=== PATIENT | male | born 1950 | race Caucasian/White ===

== ENCOUNTER 2021-06-29 09:49 | Outpatient (CLI) | payer MEDICARE | END 2021-06-29 09:50 | disposition home or self-care (01) | LOC: CSHCT 09:49 | PROVIDERS: ATTEND Otolaryngology Otolaryngic Allergy | DX: C18.6 Malignant neoplasm of descending colon (principal); C78.01 Secondary malignant neoplasm of right lung; C78.7 Secondary malignant neoplasm of liver and intrahepatic bile duct; J38.00 Paralysis of vocal cords and larynx, unspecified; R91.8 Other nonspecific abnormal finding of lung field; R59.0 Localized enlarged lymph nodes | CPT/HCPCS: 70491; 71260; 74177 ==

== ENCOUNTER 2021-07-14 16:12 | Outpatient (CLI) | payer MEDICARE ==
[2021-07-14 18:00] LABS: Hemoglobin 10.6 g/dL (13.5-17.5); Mean Corpuscular HGB CONC 33.4 g/dL (32.0-36.0); Mean Corpuscular Volume 95.8 fl (81.2-95.1); Platelet Count 200 10x3/uL (150-450); RBC Distribution Width 13.9 % (11.5-14.5); Red Blood Cell (RBC) Count 3.31 10x6/uL (4.32-5.72); White Blood Cell (WBC) Count 7.6 10x3/uL (3.5-10.5)
[2021-07-14 18:14] LABS: Anion Gap 16 mmol/L (10-20); BUN (Urea Nitrogen) 25 mg/dL (8.4-25.7); Calc. Creatinine Clearance 0 mL/min (70-130); Calcium 9.2 mg/dL (7.8-10.44); Carbon Dioxide 24 mmol/L (23-31); Chloride 99 mmol/L (98-107); Glucose 259 mg/dL (83-110); Potassium 4.8 mmol/L (3.5-5.1); Sodium 134 mmol/L (136-145)
[2021-07-15 16:27] LABS: SARS-CoV-2 PCR by NAA Not Detected (NotDetected)
== END 2021-07-14 16:13 | disposition home or self-care (01) ==
LOC: CSHLAB 16:12
PROVIDERS: ATTEND Otolaryngology Otolaryngic Allergy
DX: Z01.818 Encounter for other preprocedural examination (principal); Z20.822 Contact with and (suspected) exposure to COVID-19; J38.00 Paralysis of vocal cords and larynx, unspecified; R49.0 Dysphonia
CPT/HCPCS: 80048; 85027; 93005; 93010; U0003; U0005

== ENCOUNTER 2022-01-05 19:13 | Inpatient (IN) | payer MEDICARE ==
[2022-01-05 19:19] VITALS: BMI 22.8
[2022-01-05] MEDS ORDERED: Acetaminophen 325 MG TAB PO PRN (20:51)
[2022-01-05] MEDS ORDERED: Senokot S 8.6-50 MG TAB PO PRN (20:51)
[2022-01-05] MEDS ORDERED: HumuLIN 70/30 (300 UNITS/3 ML VIAL) SC SCH (21:15)
[2022-01-05] MEDS ORDERED: Vancomycin HCl 750 MG in Sodium Chloride 0.9% 250 ML 250 ML IVPB SCH (21:30)
[2022-01-05] MEDS: HYDROcodone/Acetaminophen 7.5/325 mg Tablet PO PRN (21:39)
[2022-01-05] MEDS: Gabapentin 300 MG CAP PO SCH (21:40)
[2022-01-06 04:34] LABS: #Basophils 0.1 10x3/uL (0.0-0.2); #Eosinphils 0.2 10x3/uL (0.0-0.5); #Monocytes 1.5 10x3/uL (0.0-1.1); #Neutrophils 8.1 10x3/uL (1.5-8.4); %Basophils 0.6 % (0.0-2.0); %Eosinophils 1.8 % (0.0-6.0); %Lymphocytes 14.5 % (18.0-47.0); %Monocytes 12.5 % (0.0-10.0); %Neutrophils 70.1 % (40.0-75.0); Hemoglobin 10.4 g/dL (13.5-17.5); Mean Corpuscular HGB CONC 32.3 g/dL (32.0-36.0); Mean Corpuscular Hemoglobin 28.4 pg (27.0-33.0); Mean Platelet Volume 9.7 fl (7.4-10.4); Platelet Count 329 10x3/uL (150-450); RBC Distribution Width 13.4 % (11.5-14.5); Red Blood Cell (RBC) Count 3.66 10x6/uL (4.32-5.72); White Blood Cell (WBC) Count 11.6 10x3/uL (3.5-10.5)
[2022-01-06 04:58] LABS: Anion Gap 20 mmol/L (10-20); BUN (Urea Nitrogen) 17 mg/dL (8.4-25.7); Calc. Creatinine Clearance 60 mL/min (70-130); Carbon Dioxide 19 mmol/L (23-31); Chloride 100 mmol/L (98-107); Glucose 78 mg/dL (83-110); Magnesium 1.8 mg/dL (1.6-2.6); Potassium 4.2 mmol/L (3.5-5.1); Sodium 135 mmol/L (136-145)
[2022-01-06] MEDS: Cefepime 1 GM in Sodium Chloride 0.9% 100 ML IVPB SCH ×2 (05:19→16:56)
[2022-01-06] MEDS: Flecainide 50 MG TAB PO SCH (08:25)
[2022-01-06] MEDS: HYDROcodone/Acetaminophen 7.5/325 mg Tablet PO PRN (08:25)
[2022-01-06] MEDS: Rivaroxaban 15 MG TAB PO SCH (08:25)
[2022-01-06] MEDS: Gabapentin 300 MG CAP PO SCH ×3 (08:25→21:46)
[2022-01-06] MEDS ORDERED: HumuLIN 70/30 (300 UNITS/3 ML VIAL) SC SCH ×2 (09:00→21:00)
[2022-01-06] MEDS ORDERED: Magnevist 469MG/ML 20 ML VIAL ONE (12:29)
[2022-01-06] MEDS ORDERED: Amlodipine 5 MG TAB PO SCH (13:15)
[2022-01-06 16:49] LABS: SARS-CoV-2 PCR by NAA Not Detected (NotDetected)
[2022-01-06] MEDS: Vancomycin 1.5 GRAM/300 ML BAG 1.5 GM in Premix Bag 1 BAG IVPB SCH (21:46)
[2022-01-06] MEDS: HumuLIN 70/30 (300 UNITS/3 ML VIAL) SC SCH (21:47)
[2022-01-07] MEDS: Cefepime 1 GM in Sodium Chloride 0.9% 100 ML IVPB SCH ×2 (05:07→17:03)
[2022-01-07] MEDS ORDERED: HumaLOG 300 UNITS/3 ML VIAL SC PRN ×2 (08:38)
[2022-01-07] MEDS ORDERED: Dextrose 50% Abboject 50 ML SYRINGE SLOW IVP PRN (08:38)
[2022-01-07] MEDS ORDERED: Dextrose 5% in Water 1,000 ML IV PRN (08:38)
[2022-01-07] MEDS: HumuLIN 70/30 (300 UNITS/3 ML VIAL) SC SCH (08:40)
[2022-01-07] MEDS: Amlodipine 5 MG TAB PO SCH (08:40)
[2022-01-07] MEDS: Gabapentin 300 MG CAP PO SCH ×3 (08:40→21:05)
[2022-01-07] MEDS: Flecainide 50 MG TAB PO SCH (08:40)
[2022-01-07] MEDS: Rivaroxaban 15 MG TAB PO SCH (08:40)
[2022-01-07 10:56] LABS: Anion Gap 15 mmol/L (10-20); BUN (Urea Nitrogen) 14 mg/dL (8.4-25.7); Calc. Creatinine Clearance 63 mL/min (70-130); Calcium 8.9 mg/dL (7.8-10.44); Carbon Dioxide 24 mmol/L (23-31); Chloride 102 mmol/L (98-107); Glucose 150 mg/dL (83-110); Potassium 4.5 mmol/L (3.5-5.1); Sodium 136 mmol/L (136-145)
[2022-01-07 10:57] LABS: #Eosinphils 0.2 10x3/uL (0.0-0.5); #Neutrophils 9.3 10x3/uL (1.5-8.4); %Basophils 0.4 % (0.0-2.0); %Eosinophils 1.5 % (0.0-6.0); %Lymphocytes 5.6 % (18.0-47.0); %Monocytes 8.7 % (0.0-10.0); %Neutrophils 83.4 % (40.0-75.0); Hemoglobin 9.9 g/dL (13.5-17.5); Mean Corpuscular HGB CONC 33.9 g/dL (32.0-36.0); Mean Corpuscular Hemoglobin 29.3 pg (27.0-33.0); Mean Corpuscular Volume 86.4 fl (81.2-95.1); Mean Platelet Volume 9.3 fl (7.4-10.4); Platelet Count 285 10x3/uL (150-450); RBC Distribution Width 13.6 % (11.5-14.5); Red Blood Cell (RBC) Count 3.38 10x6/uL (4.32-5.72); White Blood Cell (WBC) Count 11.2 10x3/uL (3.5-10.5)
[2022-01-07] MEDS ORDERED: Communication Order-Pharmacy FS SCH (12:00)
[2022-01-07] MEDS ORDERED: Clopidogrel Bisulfate 75 MG TAB PO SCH (12:00)
[2022-01-07] MEDS: Atorvastatin Calcium 40 MG TAB PO SCH (21:05)
[2022-01-07] MEDS: Vancomycin 1.5 GRAM/300 ML BAG 1.5 GM in Premix Bag 1 BAG IVPB SCH (21:06)
[2022-01-07 21:14] LABS: Vancomycin, Trough 12.6 ug/mL
[2022-01-08 04:43] LABS: #Basophils 0.1 10x3/uL (0.0-0.2); #Eosinphils 0.1 10x3/uL (0.0-0.5); #Monocytes 1.1 10x3/uL (0.0-1.1); #Neutrophils 9.6 10x3/uL (1.5-8.4); %Basophils 0.5 % (0.0-2.0); %Eosinophils 1.1 % (0.0-6.0); %Lymphocytes 6.2 % (18.0-47.0); %Monocytes 9.1 % (0.0-10.0); %Neutrophils 82.7 % (40.0-75.0); Hemoglobin 9.3 g/dL (13.5-17.5); Mean Corpuscular HGB CONC 34.2 g/dL (32.0-36.0); Mean Corpuscular Hemoglobin 29.2 pg (27.0-33.0); Mean Corpuscular Volume 85.5 fl (81.2-95.1); Mean Platelet Volume 9.8 fl (7.4-10.4); Platelet Count 269 10x3/uL (150-450); RBC Distribution Width 13.4 % (11.5-14.5); Red Blood Cell (RBC) Count 3.18 10x6/uL (4.32-5.72); White Blood Cell (WBC) Count 11.6 10x3/uL (3.5-10.5)
[2022-01-08 05:03] LABS: INR-International Normal Ratio 1.1; PTT 34.8 sec (22.0-33.0); Prothrombin Time 11.8 sec (9.5-12.1)
[2022-01-08 05:09] LABS: ALT (SGPT) 10 U/L (8-55); AST (SGOT) 14 U/L (5-34); Albumin 2.9 g/dL (3.4-4.8); Alkaline Phosphatase 128 U/L (40-110); Anion Gap 14 mmol/L (10-20); BUN (Urea Nitrogen) 16 mg/dL (8.4-25.7); Bilirubin, Total 0.3 mg/dL (0.2-1.2); Calc. Creatinine Clearance 62 mL/min (70-130); Calcium 8.6 mg/dL (7.8-10.44); Carbon Dioxide 22 mmol/L (23-31); Chloride 101 mmol/L (98-107); Globulin 3.6 g/dL (2.4-3.5); Glucose 220 mg/dL (83-110); Potassium 4.2 mmol/L (3.5-5.1); Protein, Total 6.5 g/dL (5.8-8.1); Sodium 133 mmol/L (136-145)
[2022-01-08] MEDS: Cefepime 1 GM in Sodium Chloride 0.9% 100 ML IVPB SCH ×2 (05:16→16:28)
[2022-01-08] MEDS: Flecainide 50 MG TAB PO SCH (07:39)
[2022-01-08] MEDS: Amlodipine 5 MG TAB PO SCH (07:40)
[2022-01-08] MEDS: Gabapentin 300 MG CAP PO SCH ×3 (07:40→21:06)
[2022-01-08] MEDS: Clopidogrel Bisulfate 75 MG TAB PO SCH (07:40)
[2022-01-08] MEDS: Rivaroxaban 15 MG TAB PO SCH (07:40)
[2022-01-08] MEDS: HYDROcodone/Acetaminophen 7.5/325 mg Tablet PO PRN (11:11)
[2022-01-08] MEDS ORDERED: HumaLOG 300 UNITS/3 ML VIAL SC PRN (12:00)
[2022-01-08] MEDS ORDERED: Heparin 10,000 UNITS/ 10 ML VIAL ONE (13:04)
[2022-01-08] MEDS ORDERED: Nitroglycerin 50 MG/250 ML BOT 0 ML ONE (13:04)
[2022-01-08] MEDS ORDERED: Lidocaine 1% PF 5 ML VIAL ONE (13:06)
[2022-01-08] MEDS ORDERED: Fentanyl 100 MCG/2 ML VIAL ONE (14:29)
[2022-01-08] MEDS ORDERED: Midazolam HCl 2 mg/2 ml Vial ONE (14:29)
[2022-01-08] MEDS ORDERED: Iopamidol 300 61% 100 ML VIAL FS ONE (15:29)
[2022-01-08] MEDS ORDERED: Sodium Chloride 0.9% 200 ML IV PRN (15:31)
[2022-01-08] MEDS ORDERED: Nitroglycerin 0.4 MG TAB (25 Tab Bottle) SL PRN (15:31)
[2022-01-08] MEDS ORDERED: Acetaminophen/Codeine 30-300mg Tablet PO PRN (15:31)
[2022-01-08] MEDS: Atorvastatin Calcium 40 MG TAB PO SCH (21:06)
[2022-01-08] MEDS: Vancomycin 1.5 GRAM/300 ML BAG 1.5 GM in Premix Bag 1 BAG IVPB SCH (21:10)
[2022-01-08] MEDS: HumaLOG 300 UNITS/3 ML VIAL SC PRN (21:35)
[2022-01-09 04:41] LABS: #Basophils 0.1 10x3/uL (0.0-0.2); #Eosinphils 0.2 10x3/uL (0.0-0.5); #Monocytes 0.8 10x3/uL (0.0-1.1); #Neutrophils 8.3 10x3/uL (1.5-8.4); %Basophils 0.6 % (0.0-2.0); %Eosinophils 1.8 % (0.0-6.0); %Lymphocytes 6.1 % (18.0-47.0); %Monocytes 7.5 % (0.0-10.0); %Neutrophils 83.3 % (40.0-75.0); Hemoglobin 9.9 g/dL (13.5-17.5); Mean Corpuscular HGB CONC 33.4 g/dL (32.0-36.0); Mean Corpuscular Volume 86.8 fl (81.2-95.1); Mean Platelet Volume 9.5 fl (7.4-10.4); Platelet Count 294 10x3/uL (150-450); RBC Distribution Width 13.5 % (11.5-14.5); Red Blood Cell (RBC) Count 3.41 10x6/uL (4.32-5.72)
[2022-01-09 04:52] LABS: Anion Gap 14 mmol/L (10-20); BUN (Urea Nitrogen) 19 mg/dL (8.4-25.7); Calc. Creatinine Clearance 64 mL/min (70-130); Calcium 8.9 mg/dL (7.8-10.44); Carbon Dioxide 23 mmol/L (23-31); Chloride 101 mmol/L (98-107); Glucose 167 mg/dL (83-110); Potassium 4.3 mmol/L (3.5-5.1); Sodium 134 mmol/L (136-145)
[2022-01-09] MEDS: Cefepime 1 GM in Sodium Chloride 0.9% 100 ML IVPB SCH ×2 (05:15→16:46)
[2022-01-09] MEDS: Amlodipine 5 MG TAB PO SCH (08:03)
[2022-01-09] MEDS: Flecainide 50 MG TAB PO SCH (08:03)
[2022-01-09] MEDS: Clopidogrel Bisulfate 75 MG TAB PO SCH (08:03)
[2022-01-09] MEDS: Gabapentin 300 MG CAP PO SCH ×3 (08:04→21:25)
[2022-01-09] MEDS: Acetaminophen/Codeine 30-300mg Tablet PO PRN (10:43)
[2022-01-09] MEDS ORDERED: Sodium Bicarbonate 2.5 MEQ/5 ML VIAL ONE (11:06)
[2022-01-09] MEDS ORDERED: Lidocaine 1% PF 5 ML VIAL ONE (11:06)
[2022-01-09] MEDS: Atorvastatin Calcium 40 MG TAB PO SCH (21:25)
[2022-01-09] MEDS: Vancomycin 1.5 GRAM/300 ML BAG 1.5 GM in Premix Bag 1 BAG IVPB SCH (21:26)
[2022-01-09] MEDS: HumuLIN 70/30 (300 UNITS/3 ML VIAL) SC SCH (21:26)
[2022-01-09 21:36] LABS: Vancomycin, Trough 16.6 ug/mL
[2022-01-10] MEDS: Acetaminophen/Codeine 30-300mg Tablet PO PRN ×2 (00:34→09:02)
[2022-01-10] MEDS: HumaLOG 300 UNITS/3 ML VIAL SC PRN (00:44)
[2022-01-10] MEDS: Cefepime 1 GM in Sodium Chloride 0.9% 100 ML IVPB SCH (05:10)
[2022-01-10 05:13] LABS: #Basophils 0.1 10x3/uL (0.0-0.2); #Eosinphils 0.2 10x3/uL (0.0-0.5); #Monocytes 0.9 10x3/uL (0.0-1.1); #Neutrophils 7.5 10x3/uL (1.5-8.4); %Basophils 0.6 % (0.0-2.0); %Lymphocytes 10.7 % (18.0-47.0); %Monocytes 9.1 % (0.0-10.0); Hemoglobin 9.3 g/dL (13.5-17.5); Mean Corpuscular HGB CONC 33.8 g/dL (32.0-36.0); Mean Corpuscular Hemoglobin 29.1 pg (27.0-33.0); Mean Corpuscular Volume 85.9 fl (81.2-95.1); Mean Platelet Volume 9.6 fl (7.4-10.4); Platelet Count 286 10x3/uL (150-450); RBC Distribution Width 13.5 % (11.5-14.5); White Blood Cell (WBC) Count 9.7 10x3/uL (3.5-10.5)
[2022-01-10 05:35] LABS: Anion Gap 15 mmol/L (10-20); BUN (Urea Nitrogen) 24 mg/dL (8.4-25.7); Calc. Creatinine Clearance 71 mL/min (70-130); Calcium 8.3 mg/dL (7.8-10.44); Carbon Dioxide 21 mmol/L (23-31); Chloride 105 mmol/L (98-107); Glucose 116 mg/dL (83-110); Potassium 4.2 mmol/L (3.5-5.1); Sodium 137 mmol/L (136-145)
[2022-01-10] MEDS: Clopidogrel Bisulfate 75 MG TAB PO SCH (09:01)
[2022-01-10] MEDS: Amlodipine 5 MG TAB PO SCH (09:01)
[2022-01-10] MEDS: Rivaroxaban 15 MG TAB PO SCH (09:01)
[2022-01-10] MEDS: Flecainide 50 MG TAB PO SCH (09:01)
[2022-01-10] MEDS: HumuLIN 70/30 (300 UNITS/3 ML VIAL) SC SCH (09:02)
[2022-01-10] MEDS: Gabapentin 300 MG CAP PO SCH (09:02)
[2022-01-10 16:41] VITALS: BP 133/62; TEMP 97.7
== END 2022-01-10 17:23 | disposition swing bed (61) | DRG 638 ==
LOC: CSHTELE 19:13 → OBSVTOIN 20:51
PROVIDERS: ADMIT Family Medicine; ATTEND Internal Medicine
PROC: B41D1ZZ Fluoroscopy of Aorta and Bilateral Lower Extremity Arteries using Low Osmolar Contrast (ICD-10-PCS; principal; 2022-01-08)
PROC: 02HV33Z Insertion of Infusion Device into Superior Vena Cava, Percutaneous Approach (ICD-10-PCS; 2022-01-09)
PROC: B548ZZA Ultrasonography of Superior Vena Cava, Guidance (ICD-10-PCS; 2022-01-09)
PROC: B5181ZA Fluoroscopy of Superior Vena Cava using Low Osmolar Contrast, Guidance (ICD-10-PCS; 2022-01-09)
DX: E11.69 Type 2 diabetes mellitus with other specified complication (principal); C18.9 Malignant neoplasm of colon, unspecified; C78.7 Secondary malignant neoplasm of liver and intrahepatic bile duct; C78.00 Secondary malignant neoplasm of unspecified lung; E87.1 Hypo-osmolality and hyponatremia; M86.8X7 Other osteomyelitis, ankle and foot; I48.11 Longstanding persistent atrial fibrillation; E11.621 Type 2 diabetes mellitus with foot ulcer; E11.51 Type 2 diabetes mellitus with diabetic peripheral angiopathy without gangrene; L97.521 Non-pressure chronic ulcer of other part of left foot limited to breakdown of skin; L97.519 Non-pressure chronic ulcer of other part of right foot with unspecified severity; E11.42 Type 2 diabetes mellitus with diabetic polyneuropathy; G25.81 Restless legs syndrome; N31.9 Neuromuscular dysfunction of bladder, unspecified; D72.829 Elevated white blood cell count, unspecified; E11.22 Type 2 diabetes mellitus with diabetic chronic kidney disease; I12.9 Hypertensive chronic kidney disease with stage 1 through stage 4 chronic kidney disease, or unspecified chronic kidney disease; N18.30 Chronic kidney disease, stage 3 unspecified; L89.619 Pressure ulcer of right heel, unspecified stage; D63.1 Anemia in chronic kidney disease; Z20.822 Contact with and (suspected) exposure to COVID-19; Z79.4 Long term (current) use of insulin; Z79.899 Other long term (current) drug therapy; Z79.01 Long term (current) use of anticoagulants; Z79.2 Long term (current) use of antibiotics; Z89.421 Acquired absence of other right toe(s); Z79.891 Long term (current) use of opiate analgesic; Z92.21 Personal history of antineoplastic chemotherapy; Z90.49 Acquired absence of other specified parts of digestive tract
CPT/HCPCS: 36140; 36245; 36247; 36415; 36416; 36569; 75625; 75716; 75774; 80048; 80053; 80202; 83735; 85025; 85610; 85730; 93005; 93010; 93923; 94760; 99152; A9579; C1751; C1760; C1769; C1894; J0692; J1644; J1815; J2250; J3010; J3370; J3490; J7050; Q9967; U0003; U0005

== ENCOUNTER 2022-01-22 08:00 | Outpatient (CLI) | payer MEDICARE | END 2022-01-22 08:01 | disposition home or self-care (01) | LOC: CSHWCC 08:00 | PROVIDERS: ATTEND Nurse Practitioner Family | DX: E11.621 Type 2 diabetes mellitus with foot ulcer (principal); L97.412 Non-pressure chronic ulcer of right heel and midfoot with fat layer exposed | CPT/HCPCS: 11043; 11046; 97139; G0463; 99213 ==

== ENCOUNTER 2022-02-05 08:50 | Outpatient (CLI) | payer MEDICARE | END 2022-02-05 08:51 | disposition home or self-care (01) | LOC: CSHWCC 08:50 | PROVIDERS: ATTEND Nurse Practitioner Family | DX: E11.621 Type 2 diabetes mellitus with foot ulcer (principal); L97.412 Non-pressure chronic ulcer of right heel and midfoot with fat layer exposed | CPT/HCPCS: 11042; 97605 ==

== ENCOUNTER 2022-02-21 14:24 | Inpatient (IN) | payer MEDICARE ==
[2022-02-21] MEDS ORDERED: Dexamethasone 10 MG/ML VIAL ONE (15:24)
[2022-02-21] MEDS ORDERED: Benzonatate 100 MG CAP PO PRN (15:37)
[2022-02-21] MEDS ORDERED: Acetaminophen 325 MG TAB PO PRN (15:37)
[2022-02-21] MEDS ORDERED: Ventolin HFA Inhaler 60 PUFF INHALER INH PRN (16:30)
[2022-02-21 16:56] LABS: ALT (SGPT) 33 U/L (8-55); AST (SGOT) 34 U/L (5-34); Albumin 3.1 g/dL (3.4-4.8); Alkaline Phosphatase 228 U/L (40-110); Bilirubin, Direct 0.3 mg/dL (0.1-0.3); Bilirubin, Total 0.4 mg/dL (0.2-1.2); Protein, Total 7.1 g/dL (5.8-8.1)
[2022-02-21] MEDS ORDERED: Pharmacy to Dose BARICITINIB IVPB PRN (18:08)
[2022-02-21] MEDS ORDERED: REMDESIVIR 200 MG in Sodium Chloride 0.9% 250 ML 210 ML IV SCH (20:00)
[2022-02-21] MEDS ORDERED: cefTRIAXone\\ROCEPHIN 1 GM in Sodium Chloride 0.9% 100 ML IVPB SCH (21:00)
[2022-02-21] MEDS ORDERED: Azithromycin 500 MG in Sodium Chloride 0.9% 250 ML 250 ML IVPB SCH (21:00)
[2022-02-21] MEDS ORDERED: Enoxaparin Sodium 40 MG/0.4 ML SYRINGE SC SCH (21:00)
[2022-02-21] MEDS: Ascorbic Acid 500 mg Chewable Tablet PO SCH (21:58)
[2022-02-21] MEDS: Zinc Sulfate 220 MG CAP PO SCH (21:58)
[2022-02-21] MEDS: Dexamethasone 20 MG/5 ML VIAL SLOW IVP SCH (21:58)
[2022-02-21] MEDS: Cholecalciferol (Vitamin D3) 400 UNITS TAB PO SCH (21:58)
[2022-02-21] MEDS: Pantoprazole 40 MG VIAL IVP SCH (22:03)
[2022-02-22] MEDS: Zinc Sulfate 220 MG CAP PO SCH (00:13)
[2022-02-22] MEDS: Cholecalciferol (Vitamin D3) 400 UNITS TAB PO SCH (00:13)
[2022-02-22] MEDS: Ascorbic Acid 500 mg Chewable Tablet PO SCH (00:13)
[2022-02-22] MEDS ORDERED: Dextrose 50% Abboject 50 ML SYRINGE SLOW IVP PRN (00:30)
[2022-02-22] MEDS ORDERED: Dextrose 5% in Water 1,000 ML IV PRN (00:30)
[2022-02-22] MEDS: Ondansetron PF 4 MG/2 ML Vial IVP PRN ×2 (04:08→10:29)
[2022-02-22 05:07] LABS: ALT (SGPT) 36 U/L (8-55); AST (SGOT) 35 U/L (5-34); Albumin 3.3 g/dL (3.4-4.8); Alkaline Phosphatase 247 U/L (40-110); Bilirubin, Direct 0.2 mg/dL (0.1-0.3); Bilirubin, Total 0.3 mg/dL (0.2-1.2); Protein, Total 7.5 g/dL (5.8-8.1)
[2022-02-22] MEDS: Dexamethasone 20 MG/5 ML VIAL SLOW IVP SCH (08:22)
[2022-02-22] MEDS ORDERED: Enoxaparin Sodium 40 MG/0.4 ML SYRINGE SC SCH (09:00)
[2022-02-22 09:09] LABS: Anion Gap 18 mmol/L (10-20); BUN (Urea Nitrogen) 30 mg/dL (8.4-25.7); Calc. Creatinine Clearance 56 mL/min (70-130); Carbon Dioxide 19 mmol/L (23-31); Chloride 103 mmol/L (98-107); Potassium 4.4 mmol/L (3.5-5.1); Sodium 136 mmol/L (136-145)
[2022-02-22 09:10] LABS: Estimated GFR 65; Glucose 190 mg/dL (83-110)
[2022-02-22] MEDS: Acetaminophen 650 MG Suppository PR PRN (11:43)
[2022-02-22] MEDS: HumaLOG 300 UNITS/3 ML VIAL SC PRN (12:45)
[2022-02-22 14:07] LABS: Hemoglobin A1c 6.7 % (4.0-6.0)
[2022-02-22] MEDS ORDERED: hydrALAZINE 20 MG/ML VIAL SLOW IVP PRN (17:25)
[2022-02-22] MEDS: Cefepime 1 GM VIAL IVPB SCH (18:23)
[2022-02-22] MEDS ORDERED: REMDESIVIR 100 MG in Sodium Chloride 0.9% 250 ML 230 ML IV SCH (20:00)
[2022-02-22] MEDS ORDERED: Sodium Chloride 0.9% 1,000 ML IV SCH (20:00)
[2022-02-22] MEDS: Enoxaparin Sodium 80 MG/0.8 ML SYRINGE SC SCH (20:40)
[2022-02-22] MEDS: Pantoprazole 40 MG VIAL IVP SCH (20:40)
[2022-02-22] MEDS ORDERED: Vancomycin 1.5 GRAM/300 ML BAG IVPB SCH (22:00)
[2022-02-22] MEDS ORDERED: Vancomycin 1.5 GRAM/300 ML BAG 1.5 GM in Premix Bag 1 BAG IVPB SCH (22:00)
[2022-02-23 04:02] LABS: #Monocytes 1.2 10x3/uL (0.0-1.1); #Neutrophils 11.5 10x3/uL (1.5-8.4); %Basophils 0.2 % (0.0-2.0); %Lymphocytes 5.2 % (18.0-47.0); %Monocytes 8.5 % (0.0-10.0); %Neutrophils 84.6 % (40.0-75.0); Mean Corpuscular HGB CONC 34.2 g/dL (32.0-36.0); Mean Corpuscular Hemoglobin 29.2 pg (27.0-33.0); Mean Corpuscular Volume 85.4 fl (81.2-95.1); Mean Platelet Volume 8.9 fl (7.4-10.4); Platelet Count 292 10x3/uL (150-450); RBC Distribution Width 15.3 % (11.5-14.5); Red Blood Cell (RBC) Count 3.42 10x6/uL (4.32-5.72); White Blood Cell (WBC) Count 13.5 10x3/uL (3.5-10.5)
[2022-02-23 04:17] LABS: Anion Gap 17 mmol/L (10-20); BUN (Urea Nitrogen) 35 mg/dL (8.4-25.7); Calc. Creatinine Clearance 56 mL/min (70-130); Carbon Dioxide 22 mmol/L (23-31); Chloride 104 mmol/L (98-107); Sodium 139 mmol/L (136-145)
[2022-02-23 04:18] LABS: ALT (SGPT) 34 U/L (8-55); AST (SGOT) 30 U/L (5-34); Albumin 3.4 g/dL (3.4-4.8); Alkaline Phosphatase 227 U/L (40-110); Bilirubin, Direct 0.3 mg/dL (0.1-0.3); Bilirubin, Total 0.4 mg/dL (0.2-1.2); CRP (Inflammatory) 1.72 mg/dL (= or < 0.5); Calcium 9.3 mg/dL (7.8-10.44); Cardiac Risk 2.6 (Less than 4.5); Cholesterol 107 mg/dl (< 200 Desired); Estimated GFR 65; Glucose 149 mg/dL (83-110); HDL Cholesterol 41 mg/dL (>60 Neg Risk); LDL Cholesterol, Calculated 55 mg/dL; Protein, Total 7.6 g/dL (5.8-8.1); Triglycerides 53 mg/dL (Less than 150)
[2022-02-23 04:21] LABS: Actual Bicarbonate (HCO3v) 24 mEq/L (22-28); Base Excess -1.5 mEq/L (-2.0 to +3.0); Calcium, Ionized (venous) 1.18 mmol/L (1.16-1.32); Chloride (VBG) 105 mmol/L (98-106); Critical Notified By: CP.PH; Hemoglobin (Hb) 10.7 g/dL (12.6-17.4); Potassium (VBG) 3.98 mmol/L (3.70-5.30); Puncture Site Other Site; RapidComm Collect By LAB.YY; Sodium 136.4 mmol/L (133-146); pH (venous) 7.36 (7.32-7.43)
[2022-02-23] MEDS: Cefepime 1 GM VIAL IVPB SCH ×2 (07:43→17:42)
[2022-02-23] MEDS: Enoxaparin Sodium 80 MG/0.8 ML SYRINGE SC SCH ×2 (09:45→20:02)
[2022-02-23] MEDS: Ondansetron PF 4 MG/2 ML Vial IVP PRN (14:47)
[2022-02-23] MEDS ORDERED: Sodium Chloride 0.9% 1,000 ML IV SCH (19:15)
[2022-02-23] MEDS ORDERED: Diltiazem 125 MG in Sodium Chloride 0.9% 100 ML IVPB SCH (19:15)
[2022-02-23] MEDS: Ondansetron ODT 4 MG TAB PO PRN (19:42)
[2022-02-23] MEDS: Pantoprazole 40 MG VIAL IVP SCH (20:02)
[2022-02-23] MEDS: Diltiazem 125 MG in Sodium Chloride 0.9% 100 ML IVPB SCH (20:02)
[2022-02-23 21:30] LABS: Vancomycin, Trough 19.6 ug/mL
[2022-02-23] MEDS: Vancomycin HCl 750 MG in Sodium Chloride 0.9% 250 ML 250 ML IVPB SCH (22:31)
[2022-02-23] MEDS: Acetaminophen 650 MG Suppository PR PRN (23:04)
[2022-02-24] MEDS: Ondansetron ODT 4 MG TAB PO PRN ×2 (00:42→20:16)
[2022-02-24] MEDS: Acetaminophen 650 MG Suppository PR PRN (03:28)
[2022-02-24] MEDS: Cefepime 1 GM VIAL IVPB SCH ×2 (05:33→18:12)
[2022-02-24 05:47] LABS: #Monocytes 1.2 10x3/uL (0.0-1.1); #Neutrophils 11.7 10x3/uL (1.5-8.4); %Basophils 0.1 % (0.0-2.0); %Lymphocytes 4.1 % (18.0-47.0); %Monocytes 8.8 % (0.0-10.0); %Neutrophils 86.2 % (40.0-75.0); Hemoglobin 10.5 g/dL (13.5-17.5); Mean Corpuscular Hemoglobin 29.2 pg (27.0-33.0); Mean Corpuscular Volume 85.8 fl (81.2-95.1); Mean Platelet Volume 9.1 fl (7.4-10.4); Platelet Count 306 10x3/uL (150-450); RBC Distribution Width 15.4 % (11.5-14.5); White Blood Cell (WBC) Count 13.6 10x3/uL (3.5-10.5)
[2022-02-24 06:09] LABS: Anion Gap 18 mmol/L (10-20); BUN (Urea Nitrogen) 37 mg/dL (8.4-25.7); CRP (Inflammatory) 2.45 mg/dL (= or < 0.5); Calc. Creatinine Clearance 59 mL/min (70-130); Calcium 9.2 mg/dL (7.8-10.44); Carbon Dioxide 21 mmol/L (23-31); Chloride 106 mmol/L (98-107); Estimated GFR 69; Glucose 173 mg/dL (83-110); Magnesium 2.1 mg/dL (1.6-2.6); Sodium 141 mmol/L (136-145)
[2022-02-24] MEDS ORDERED: Morphine 2 MG/ML VIAL SLOW IVP SCH (06:30)
[2022-02-24] MEDS: Diltiazem 125 MG in Sodium Chloride 0.9% 100 ML IVPB SCH (07:38)
[2022-02-24] MEDS: Enoxaparin Sodium 80 MG/0.8 ML SYRINGE SC SCH ×2 (09:29→20:15)
[2022-02-24] MEDS: Morphine 2 MG/ML VIAL SLOW IVP PRN ×2 (12:46→21:51)
[2022-02-24] MEDS: Amino Acids 4.25 %/Dextrose 5% 2,000 ML IV SCH (14:19)
[2022-02-24] MEDS: HumaLOG 300 UNITS/3 ML VIAL SC PRN ×2 (16:59→22:05)
[2022-02-24] MEDS: Pantoprazole 40 MG VIAL IVP SCH (20:15)
[2022-02-24] MEDS: Vancomycin HCl 750 MG in Sodium Chloride 0.9% 250 ML 250 ML IVPB SCH (21:51)
[2022-02-25] MEDS: Diltiazem 125 MG in Sodium Chloride 0.9% 100 ML IVPB SCH (00:44)
[2022-02-25 05:49] LABS: ALT (SGPT) 27 U/L (8-55); AST (SGOT) 21 U/L (5-34); Albumin 3.2 g/dL (3.4-4.8); Alkaline Phosphatase 184 U/L (40-110); Anion Gap 16 mmol/L (10-20); BUN (Urea Nitrogen) 36 mg/dL (8.4-25.7); Bilirubin, Total 0.5 mg/dL (0.2-1.2); Calc. Creatinine Clearance 68 mL/min (70-130); Calcium 8.9 mg/dL (7.8-10.44); Carbon Dioxide 22 mmol/L (23-31); Chloride 104 mmol/L (98-107); Estimated GFR 79; Globulin 4.2 g/dL (2.4-3.5); Glucose 241 mg/dL (83-110); Magnesium 1.9 mg/dL (1.6-2.6); Potassium 3.3 mmol/L (3.5-5.1); Protein, Total 7.4 g/dL (5.8-8.1); Sodium 139 mmol/L (136-145)
[2022-02-25 05:56] LABS: #Monocytes 1.2 10x3/uL (0.0-1.1); #Neutrophils 10.8 10x3/uL (1.5-8.4); %Basophils 0.2 % (0.0-2.0); %Eosinophils 0.1 % (0.0-6.0); %Monocytes 9.6 % (0.0-10.0); %Neutrophils 85.5 % (40.0-75.0); Hemoglobin 10.1 g/dL (13.5-17.5); Mean Corpuscular HGB CONC 32.9 g/dL (32.0-36.0); Mean Corpuscular Hemoglobin 28.4 pg (27.0-33.0); Mean Corpuscular Volume 86.2 fl (81.2-95.1); Mean Platelet Volume 9.3 fl (7.4-10.4); Platelet Count 263 10x3/uL (150-450); RBC Distribution Width 15.2 % (11.5-14.5); Red Blood Cell (RBC) Count 3.56 10x6/uL (4.32-5.72); White Blood Cell (WBC) Count 12.6 10x3/uL (3.5-10.5)
[2022-02-25] MEDS: Cefepime 1 GM VIAL IVPB SCH ×2 (05:58→17:47)
[2022-02-25] MEDS: HumaLOG 300 UNITS/3 ML VIAL SC PRN ×3 (06:07→16:32)
[2022-02-25] MEDS ORDERED: Potassium Chloride 40 MEQ in Premix Bag 1 BAG IVPB SCH (08:15)
[2022-02-25] MEDS ORDERED: Amino Acids 4.25 %/Dextrose 5% 2,000 ML BAG IV SCH (09:00)
[2022-02-25] MEDS: Potassium Chloride 20 MEQ in Premix Bag 1 BAG IVPB SCH ×2 (09:42→12:35)
[2022-02-25] MEDS: Enoxaparin Sodium 80 MG/0.8 ML SYRINGE SC SCH ×2 (09:42→20:56)
[2022-02-25] MEDS: Amino Acids 4.25 %/Dextrose 5% 2,000 ML IV SCH (18:39)
[2022-02-25] MEDS: Pantoprazole 40 MG VIAL IVP SCH (20:57)
[2022-02-26] MEDS: HumaLOG 300 UNITS/3 ML VIAL SC PRN ×4 (00:17→18:48)
[2022-02-26] MEDS: Ondansetron ODT 4 MG TAB PO PRN (00:23)
[2022-02-26] MEDS: Morphine 2 MG/ML VIAL SLOW IVP PRN ×2 (01:58→22:02)
[2022-02-26] MEDS: Diltiazem 125 MG in Sodium Chloride 0.9% 100 ML IVPB SCH (03:51)
[2022-02-26 05:00] LABS: Anion Gap 11 mmol/L (10-20); BUN (Urea Nitrogen) 38 mg/dL (8.4-25.7); Calc. Creatinine Clearance 68 mL/min (70-130); Calcium 9.1 mg/dL (7.8-10.44); Carbon Dioxide 25 mmol/L (23-31); Chloride 101 mmol/L (98-107); Estimated GFR 82; Glucose 276 mg/dL (83-110); Magnesium 1.7 mg/dL (1.6-2.6); Potassium 3.4 mmol/L (3.5-5.1); Sodium 134 mmol/L (136-145)
[2022-02-26 05:04] LABS: #Monocytes 1.1 10x3/uL (0.0-1.1); #Neutrophils 10.2 10x3/uL (1.5-8.4); %Basophils 0.1 % (0.0-2.0); %Eosinophils 0.3 % (0.0-6.0); %Lymphocytes 4.3 % (18.0-47.0); %Monocytes 9.1 % (0.0-10.0); %Neutrophils 85.5 % (40.0-75.0); Hemoglobin 10.2 g/dL (13.5-17.5); Mean Corpuscular HGB CONC 34.1 g/dL (32.0-36.0); Mean Corpuscular Hemoglobin 28.9 pg (27.0-33.0); Mean Corpuscular Volume 84.7 fl (81.2-95.1); Mean Platelet Volume 9.4 fl (7.4-10.4); Platelet Count 244 10x3/uL (150-450); RBC Distribution Width 15.1 % (11.5-14.5); Red Blood Cell (RBC) Count 3.53 10x6/uL (4.32-5.72); White Blood Cell (WBC) Count 11.9 10x3/uL (3.5-10.5)
[2022-02-26] MEDS: Cefepime 1 GM VIAL IVPB SCH ×2 (05:47→18:14)
[2022-02-26] MEDS ORDERED: Potassium Chloride 20 MEQ TAB PO SCH (07:45)
[2022-02-26] MEDS ORDERED: Enoxaparin Sodium 80 MG/0.8 ML SYRINGE ONE (08:11)
[2022-02-26] MEDS ORDERED: Lantus 1000 UNITS/10 ML VIAL SC SCH (09:00)
[2022-02-26] MEDS: Magnesium 2 GM/50 ML(in water) 2 GM in Premix Bag 1 BAG IVPB SCH ×2 (10:08→12:46)
[2022-02-26] MEDS: Enoxaparin Sodium 80 MG/0.8 ML SYRINGE SC SCH ×2 (10:08→21:06)
[2022-02-26] MEDS ORDERED: Magnesium 2 GM/50 ML(in water) 2 GM in Premix Bag 1 BAG IVPB SCH (12:45)
[2022-02-26] MEDS: Amino Acids 4.25 %/Dextrose 5% 2,000 ML IV SCH ×2 (18:14→18:38)
[2022-02-26] MEDS: Pantoprazole 40 MG VIAL IVP SCH (21:07)
[2022-02-27] MEDS: HumaLOG 300 UNITS/3 ML VIAL SC PRN ×5 (01:04→21:16)
[2022-02-27] MEDS: Morphine 2 MG/ML VIAL SLOW IVP PRN ×3 (04:21→21:03)
[2022-02-27 05:06] LABS: #Monocytes 1.2 10x3/uL (0.0-1.1); #Neutrophils 11.5 10x3/uL (1.5-8.4); %Basophils 0.1 % (0.0-2.0); %Eosinophils 0.2 % (0.0-6.0); %Lymphocytes 2.8 % (18.0-47.0); %Monocytes 9.3 % (0.0-10.0); %Neutrophils 86.8 % (40.0-75.0); Hemoglobin 10.6 g/dL (13.5-17.5); Mean Corpuscular Hemoglobin 29.4 pg (27.0-33.0); Mean Corpuscular Volume 83.9 fl (81.2-95.1); Mean Platelet Volume 9.6 fl (7.4-10.4); Platelet Count 235 10x3/uL (150-450); Red Blood Cell (RBC) Count 3.61 10x6/uL (4.32-5.72); White Blood Cell (WBC) Count 13.2 10x3/uL (3.5-10.5)
[2022-02-27] MEDS: Cefepime 1 GM VIAL IVPB SCH (05:24)
[2022-02-27] MEDS ORDERED: Cefepime 1 GM VIAL ONE (05:26)
[2022-02-27 05:43] LABS: Anion Gap 11 mmol/L (10-20); BUN (Urea Nitrogen) 39 mg/dL (8.4-25.7); Calc. Creatinine Clearance 72 mL/min (70-130); Calcium 8.8 mg/dL (7.8-10.44); Carbon Dioxide 24 mmol/L (23-31); Chloride 101 mmol/L (98-107); Estimated GFR 85; Glucose 290 mg/dL (83-110); Magnesium 2.2 mg/dL (1.6-2.6); Potassium 3.3 mmol/L (3.5-5.1); Sodium 133 mmol/L (136-145)
[2022-02-27] MEDS: Enoxaparin Sodium 80 MG/0.8 ML SYRINGE SC SCH ×2 (09:25→20:39)
[2022-02-27] MEDS: Lantus 1000 UNITS/10 ML VIAL SC SCH (09:28)
[2022-02-27] MEDS ORDERED: ALPRAZolam 0.5 MG TAB PO SCH (10:00)
[2022-02-27] MEDS ORDERED: Potassium Chloride 20 MEQ TAB PO SCH (10:00)
[2022-02-27] MEDS: Amino Acids 4.25 %/Dextrose 5% 2,000 ML IV SCH (15:35)
[2022-02-28] MEDS: Morphine 2 MG/ML VIAL SLOW IVP PRN ×2 (03:09→20:08)
[2022-02-28 04:34] LABS: #Monocytes 1.6 10x3/uL (0.0-1.1); #Neutrophils 12.5 10x3/uL (1.5-8.4); %Basophils 0.1 % (0.0-2.0); %Eosinophils 0.3 % (0.0-6.0); %Lymphocytes 2.7 % (18.0-47.0); %Monocytes 10.5 % (0.0-10.0); %Neutrophils 85.3 % (40.0-75.0); Hemoglobin 10.7 g/dL (13.5-17.5); Mean Corpuscular HGB CONC 33.9 g/dL (32.0-36.0); Mean Corpuscular Hemoglobin 28.9 pg (27.0-33.0); Mean Corpuscular Volume 85.4 fl (81.2-95.1); Mean Platelet Volume 9.8 fl (7.4-10.4); Platelet Count 243 10x3/uL (150-450); RBC Distribution Width 14.8 % (11.5-14.5); White Blood Cell (WBC) Count 14.7 10x3/uL (3.5-10.5)
[2022-02-28 04:47] LABS: Anion Gap 12 mmol/L (10-20); BUN (Urea Nitrogen) 44 mg/dL (8.4-25.7); Calc. Creatinine Clearance 67 mL/min (70-130); Calcium 8.9 mg/dL (7.8-10.44); Carbon Dioxide 23 mmol/L (23-31); Chloride 100 mmol/L (98-107); Estimated GFR 79; Glucose 245 mg/dL (83-110); Magnesium 2.1 mg/dL (1.6-2.6); Potassium 3.3 mmol/L (3.5-5.1); Sodium 132 mmol/L (136-145)
[2022-02-28] MEDS: HumaLOG 300 UNITS/3 ML VIAL SC PRN (05:09)
[2022-02-28] MEDS ORDERED: Potassium Chloride 20 MEQ TAB PO SCH (10:00)
[2022-02-28] MEDS: Enoxaparin Sodium 80 MG/0.8 ML SYRINGE SC SCH ×2 (10:08→21:35)
[2022-02-28] MEDS: Lantus 1000 UNITS/10 ML VIAL SC SCH (10:08)
[2022-02-28 14:45] VITALS: BMI 25.2
[2022-02-28] MEDS ORDERED: Lorazepam 0.5 MG TAB PO PRN (15:15)
[2022-02-28] MEDS: Amino Acids 4.25 %/Dextrose 5% 2,000 ML IV SCH (17:38)
[2022-02-28] MEDS ORDERED: Lantus 1000 UNITS/10 ML VIAL SC SCH (21:00)
[2022-03-01] MEDS: HumaLOG 300 UNITS/3 ML VIAL SC PRN (05:41)
[2022-03-01] MEDS: Lantus 1000 UNITS/10 ML VIAL SC SCH (09:00)
[2022-03-01] MEDS ORDERED: Apixaban 5 MG TAB PO SCH (09:00)
[2022-03-01] MEDS ORDERED: Rivaroxaban 10 MG TAB PO SCH (09:00)
[2022-03-01] MEDS: Amino Acids 4.25 %/Dextrose 5% 2,000 ML IV SCH (10:30)
[2022-03-01 11:23] VITALS: BP 154/90; TEMP 98.3
== END 2022-03-01 12:00 | DRG 177 ==
LOC: CSHERS 14:24 → CSHICU 19:31 → CSHTELE 02-22 23:17
PROVIDERS: ADMIT Internal Medicine; ATTEND Internal Medicine
PROC: XW033E5 Introduction of Remdesivir Anti-infective into Peripheral Vein, Percutaneous Approach, New Technology Group 5 (ICD-10-PCS; principal; 2022-02-21)
PROC: 3E0333Z Introduction of Anti-inflammatory into Peripheral Vein, Percutaneous Approach (ICD-10-PCS; 2022-02-21)
PROC: 8E0ZXY6 Isolation (ICD-10-PCS; 2022-02-21)
DX: U07.1 COVID-19 (principal); J96.01 Acute respiratory failure with hypoxia; J69.0 Pneumonitis due to inhalation of food and vomit; M86.8X7 Other osteomyelitis, ankle and foot; C18.9 Malignant neoplasm of colon, unspecified; C78.00 Secondary malignant neoplasm of unspecified lung; C78.7 Secondary malignant neoplasm of liver and intrahepatic bile duct; I48.11 Longstanding persistent atrial fibrillation; E44.0 Moderate protein-calorie malnutrition; I50.32 Chronic diastolic (congestive) heart failure; I13.0 Hypertensive heart and chronic kidney disease with heart failure and stage 1 through stage 4 chronic kidney disease, or unspecified chronic kidney disease; G47.33 Obstructive sleep apnea (adult) (pediatric); E11.69 Type 2 diabetes mellitus with other specified complication; F41.9 Anxiety disorder, unspecified; F32.A Depression, unspecified; R13.12 Dysphagia, oropharyngeal phase; E11.42 Type 2 diabetes mellitus with diabetic polyneuropathy; J38.00 Paralysis of vocal cords and larynx, unspecified; N18.30 Chronic kidney disease, stage 3 unspecified; E83.42 Hypomagnesemia; E87.6 Hypokalemia; E11.22 Type 2 diabetes mellitus with diabetic chronic kidney disease; Z79.899 Other long term (current) drug therapy; Z79.4 Long term (current) use of insulin; Z90.49 Acquired absence of other specified parts of digestive tract; Z89.429 Acquired absence of other toe(s), unspecified side; Z68.25 Body mass index [BMI] 25.0-25.9, adult
CPT/HCPCS: 36415; 36416; 71045; 74230; 80048; 80053; 80061; 80076; 80202; 82805; 83036; 83605; 83735; 84443; 85025; 86140; 86850; 86900; 86901; 87040; 93005; 93010; 93306; 94760; 96374; 97139; C9113; J0248; J0360; J0456; J0692; J0696; J1100; J1650; J1815; J2270; J2405; J3370; J3475; J3480; J3490; J7050; J7620; Q0162